=== PATIENT | male | born 1975 | race Hispanic/Latino ===

== ENCOUNTER 2020-03-09 18:51 | Inpatient (IN) | payer MEDICARE, OTHER ==
[~2020-03-09] VITALS: Ht 188 cm; Wt 148.8 kg
[~2020-03-09 18:51] MED LIST: ALBUTERAL INH; CALCITRIOL0.25 MCG PO; FUROSEMIDE40 MG PO; HYDRALAZINE HCL25 MG PO; LIPITOR20 MG PO; ORACIT PO; RENVELA800 MG PO
[2020-03-09 20:30] VITALS: BP 136/82
[2020-03-09 20:45] VITALS: BP 136/82
--- NOTE | 2020-03-09 20:45 | NUR ---
RECEIVED 44 YEAR OLD MALE FROM ER DIRECT ADMISSION VIA W/C. NKDA. VS STABLE- T98 HR 68 R 20 B/P 136/82 O2 SAT ON RA 97%. PT HAS HX DIALYSIS HEMO 3 X WEEK. DIALYSIS CATH RT CHEST INTACT. PT DUE TO HAVE DIALYSIS IN AM. WILL NOTIFY TATIANA PT ADMITTED. PT REPORT VOID DAILY. WRITTEN ORDERS RECEIVED FROM DR DAY. PHYSICIAN NOTIFIED. ORDER RECEIVED FOR TELE. ORDER RECEIVED FOR SL- PT REFUSED. LIMB ALERT ON LEFT ARM - NO BLOOD DRAW OR IV STICKS. PT TO GET FISTULA IN LEFT ARM ON monday. ORDER RECEIVED FOR LOVENOX DAILY BUT PT REFUSE. CBC AND CMP TO BE DONE WITH DIALYSIS TODAY. RESPIRATIONS ARE EVEN AND UNLABORED. TELE ON. DRESSING ON- PT REPORTS HAS SEROUS SANGUINOUS DRAINAGE FROM ABSCESS GENITAL LYMPHEDEMA. BILATERAL LOWER EXTREMITIES EDEMATOUS. CALL LIGHT WITHIN REACH. BED IN LOW POSITION. HOME MEDS ORDERED BY DR VARGAS. CONSULTS ENTERED.PT DENIES PAIN. PT AMBULATES TO BATHROOM WITH HIS WALKER FROM HOME. PT IS ALERT AND ORIENTED X3. ORIENTED PT TO ROOM, PMC, AND ANSWERED QUESTIONS PRN.
[2020-03-09] MEDS ORDERED: METOPROLOL TARTRATE INJ 1 MG/ML VIAL IV PRN (22:00)
[2020-03-10] VITALS (8 sets, daily range): BP systolic 137–159; BP diastolic 96–108
--- NOTE | 2020-03-10 07:20 | NUR ---
ASSESSMENT: Spiritual concern Pt requested sanding machine tender automatic visit via RN. Pt thankful for God. Pt states he has been "blessed" financially, physically and spiritually from God. Pt attributes radical weight loss to God help. Pt identifies as non-buddhist Methodist. Intervention: Provided empathic listening, hospitality and prayer. Facilitated storytelling. Provided information on how to reach sanding machine tender automatic, if needed. Outcome: Pt expressed appreciation for visit. Will follow as able. DUY SESAY [employer] Spiritual Care Department O: [phone]
[2020-03-10] MEDS ORDERED: SEVELAMER CARBONATE 800 MG TAB PO SCH (08:00)
[2020-03-10] MEDS ORDERED: VANCOMYCIN 1GM/NS 250 ML 250 ML IV SCH (09:00)
[2020-03-10] MEDS ORDERED: ENOXAPARIN SOD INJ 40 MG/0.4 ML SYR SC SCH (09:00)
[2020-03-10] MEDS: SEVELAMER CARBONATE 800 MG TAB PO SCH ×3 (10:33→17:15)
[2020-03-10] MEDS: METOPROLOL TARTRATE 50 MG TAB PO SCH ×2 (10:33→17:15)
[2020-03-10] MEDS: CITRIC ACID/SODIUM CITRATE 30 ML UDC PO SCH ×2 (10:33→17:15)
[2020-03-10] MEDS: CALCITRIOL 0.25 MCG CAP PO SCH (12:16)
--- NOTE | 2020-03-10 13:06 | NUR ---
WOUND CARE CONSULT FOR 44 YO MALE HX OF GENITAL LYMPHEDEMA VIKTOR 18 ON CONSERVATIVE PUP STATUS AND INTERVENTIONS AND VISCO MATTRESS SKIN ASSESSMENT COMPLETE PATIENT PRESENTS WITH ENLARGED SCROTAL AREA WITH 2 PARTIAL THICKNESS WOUNDS TO LATERAL SIDES 0.5CM X0.5CM X 0.1CM RECOMMENDATIONS: NURSING TO CONTINUE TO MAINTAIN CONSERVATIVE PUP STATUS AND INTERVENTIONS AND VISCO MATTRESS NURSING TO CONTINUE TO ASSIST PATIENT OUT OF BED FOR MEALS AND MUCH TOLERATED NURSING TO CONTINUE TO ASSIST PATIENT NEEDED WITH MEALS AND NUTRITIONAL SUPPLEMENTS TO ENSURE PROPER REQUIREMENTS FOR HEALING NURSING TO CONTINUE TO OFFLOAD FEET AND HEELS NEEDED WITH PILLOW SUSPENSION WHEN IN BED NURSING TO CLEAN SCROTAL PARTIAL THICKNESS WOUNDS WITH NORMAL SALINE DAILY AND COVER TO PROTECT FROM SHEERING AND SKIN TO SKIN FRICTION Addendum: 03/10/20 at 1323 by Rolo Davalos RN Amended: Links added.
--- NOTE | 2020-03-10 14:43 | NUR ---
Dialysis aware of patient needing dialysis today. Called Dr. Corbin office again to notify him of consult/ orders. patient returned from imaging. doing well.
--- NOTE | 2020-03-10 15:25 | Diagnostic Imaging Report ---
CT of the abdomen and pelvis, with contrast, 03/10/2020. History: Genital lymphedema. Comparison: None available. Technique: Multidetector CT scanning of the abdomen and pelvis was performed from the level of the lung bases to the inferior pubic rami after intravenous administration of contrast. Coronal and sagittal multiplanar reformations were obtained. RADIATION DOSE: Total DLP: 1311 mGy*cm Dose modulation, iterative reconstruction, and/or weight based adjustment of the mA/kV was utilized to reduce the radiation dose to as low as reasonably achievable. Discussion: LUNG BASES: There is right basilar atelectasis with moderate right pleural effusion. ABDOMEN: Gallbladder is collapsed. The kidneys are atrophic. The liver, biliary tree, spleen, pancreas, and adrenal glands are normal. The hepatic vein, portal vein, and splenic vein are patent. The abdominal aorta is within normal limits for size. Evaluation of bowel is limited without oral contrast. There is no bowel dilatation. There is no evidence of adenopathy or free fluid. PELVIS: There is massive scrotal swelling with severe skin thickening and subcutaneous edema in the posterior and dependent portion. There is no visible focal fluid collection. Enlarged inguinal lymph nodes are present bilaterally, measuring up to 1.6 cm on the left and 1.8 cm on the right. The bladder, prostate, and seminal vesicles are unremarkable. There is no evidence of free fluid. BONES AND SOFT TISSUES: Degenerative changes are present throughout the lumbar spine without evidence of lytic or sclerotic lesion. IMPRESSION: Massive scrotal edema with bilateral inguinal adenopathy, likely reactive. Signed by: Timo Vazquez on 03/10/2020 3:21 PM
--- NOTE | 2020-03-10 16:29 | History and Physical ---
CHIEF COMPLAINT: Atrial fibrillation with rapid ventricular response, scrotal abscess. HISTORY OF PRESENT ILLNESS: A 44-year-old male patient came to the office for initial exam. The patient is morbidly obese. However, he lost 280 pounds in past several months after dialysis. The patient's EKG showed atrial fibrillation with a rapid ventricular response of 140. Also, the patient is scheduled to have AV fistula placement on the left arm next week Monday at [facility] by Dr. Almeida. The patient is admitted for antibiotic treatment and control of atrial fibrillation. The patient denies chest pain, shortness of breath. He has large genital lymphedema, mass, one of the lymphocele is leaking serosanguineous drainage. PAST MEDICAL HISTORY: Hypertension, since young age, end-stage renal disease and morbid obesity. PERSONAL HISTORY: No history of smoking or alcohol. SURGICAL HISTORY: Dialysis catheter placement in the right subclavian. PHYSICAL EXAMINATION: VITAL SIGNS: Blood pressure on admission 136/82, pulse of 68, temperature 98. HEAD AND ENT: Normal. NECK: No JVD. LUNGS: Diminished at both bases. CVS: Normal. ABDOMEN: Protuberant. Bowel sounds normal. The patient has large pubic lymphedema present with one area draining serosanguineous fluid on pressure. EXTREMITIES: Lower extremities trace edema present. Chronic venous stasis hyperpigmentation present. LABORATORY DATA: Pending. ASSESSMENT: Atrial fibrillation, rapid ventricular response. End-stage renal disease. Pubic lymphedema with infection and abscess. PLAN: We will give vancomycin IV with dialysis. Echocardiogram. Cardiology consultation. Dr. Browne's consultation. MD HAYLIE Jones/MODL /[id number]
[2020-03-10 17:56] LABS: BASOPHILS # (AUTO) 0.1 (0.0-0.1); BASOPHILS % 0.7 % (0.0-1.0); EOSINOPHILS # (AUTO) 0.6 (0.0-0.4); EOSINOPHILS % 6.7 % (0.0-6.0); HEMATOCRIT 31.8 % (38.2-49.6); HEMOGLOBIN 9.6 g/dL (14.0-18.0); LYMPHOCYTES # (AUTO) 1.3 (1.0-3.2); LYMPHOCYTES % 14.6 % (18.0-39.1); MEAN CORPUSCULAR HEMOGLOBIN 28.7 pg (28-32); MEAN CORPUSCULAR HGB CONC 30.2 g/dL (31-35); MEAN CORPUSCULAR VOLUME 94.9 fL (81-99); MONOCYTES # (AUTO) 0.6 (0.2-0.8); MONOCYTES % 6.6 % (4.4-11.3); NEUTROPHILS # (AUTO) 6.5 (2.1-6.9); PLATELET COUNT 172 x10e3/uL (140-360); RED BLOOD COUNT 3.35 x10e6/uL (4.3-5.7); RED CELL DISTRIBUTION WIDTH 15.3 % (11.7-14.4)
[2020-03-10 18:26] LABS: ANION GAP 16.1 mmol/L (8-16); CALCIUM 8.8 mg/dL (8.4-10.2); CREATININE, SERUM 9.59 mg/dL (0.72-1.25); POTASSIUM 4.1 mmol/L (3.5-5.1)
--- NOTE | 2020-03-10 18:54 | Consultation ---
DATE OF CONSULTATION: 03/10/2020 Cardiology Progress Note CONSULTING PHYSICIAN: Paul Herrera M.D. REASON FOR CONSULTATION: Atrial fibrillation. HISTORY OF PRESENT ILLNESS: A pleasant 44-year-old man with history of morbid obesity; end-stage renal disease, on dialysis; dyslipidemia;and hypertension, presents for gentle lymphedema with dialysis/wound. He has been undergoing evaluation for possible AV fistula this upcoming week. He has been documented reportedly to have atrial fibrillation at the [facility] [place] per the patient's report and is aware of atrial fibrillation. He has not, however, been on anticoagulation for such that he reports in the past. He denies any chest discomfort or shortness of breath or dyspnea on exertion or level of activity. However, he is somewhat sedentary as he uses a walker to ambulate given the underlying wound. He denies any orthopnea, paroxysmal nocturnal dyspnea, or other complaints. REVIEW OF SYSTEMS: Twelve-system review is negative except for as noted above. ALLERGIES: NO KNOWN DRUG ALLERGIES. PAST MEDICAL HISTORY: As per HPI. SOCIAL HISTORY: Negative x3. FAMILY HISTORY: Noncontributory. PHYSICAL EXAMINATION: VITAL SIGNS: Temperature 97.8, heart rate 79, blood pressure 143/106, respiratory rate of 18, and O2 saturation is 99%. BMI 42. GENERAL: In no acute distress, alert. NECK: No JVD. CHEST: Clear to auscultation. CARDIOVASCULAR: Irregularly irregular rate and rhythm. Normal S1, S2. No S3 or S4. ABDOMEN: Soft. Bowel sounds positive. : Genital edema with wound. EXTREMITIES: Lower extremities with edema. CARDIOVASCULAR MEDICATIONS: Reviewed: 1. Lovenox 40 mg subcu daily. 2. Atorvastatin 20 mg at bedtime. 3. Metoprolol tartrate 50 mg b.i.d., initiated today. LABORATORY DATA: Lab work ordered and still pending. COVID-19 study pending. ASSESSMENT: A 44-year-old man with atrial fibrillation, end-stage renal disease, dyslipidemia, and hypertension, presents with suspected pneumonia. RECOMMENDATIONS: 1. Obtain echocardiogram. 2. Continue rate control strategy with beta leonarda. 3. Continue statin. 4. Switch Lovenox to 1 mg/kg once daily dosing in the setting of underlying atrial fibrillation. 5. Further recommendations to follow. MD ASHLEY Sorto/JOSEL /[id number]
--- NOTE | 2020-03-10 19:20 | NUR ---
RECEIVED REPORT FROM DAY RN. pT IS ALERT AND ORIENTED X3. lUNGS ARE CLEAR. rESPIRATIONS UNLABORED. .DIALYSIS CATH INTACT. PT DENIES PAIN.CALL LIGHT WITHIN REACH . BED IN LOW POSITION. PT TO HAVE DILAYSIS THIS PM AND ECHO.
[2020-03-10] MEDS ORDERED: SODIUM CHLORIDE 0.9% 1000ML 1,000 ML ONE (20:10)
[2020-03-10] MEDS ORDERED: IOPAMIDOL 370 MG/ML 200 ML INFUS..BTL INJ ONE (20:22)
[2020-03-10] MEDS ORDERED: SODIUM CHLORIDE 0.9% 50ML 50 ML ONE (20:22)
[2020-03-10] MEDS ORDERED: NIFEDIPINE CR 30 MG TAB PO SCH (21:00)
[2020-03-10] MEDS ORDERED: ATORVASTATIN 20 MG TAB PO SCH (21:00)
[2020-03-10] MEDS ORDERED: HEPARIN SOD (PORCINE) 1000 UNIT/ML 10ML MDV IV ONE ×2 (22:30→22:45)
[2020-03-10] MEDS ORDERED: HEPARIN SOD (PORCINE) 1000 UNIT/ML 10ML MDV IV NR ×2 (22:45→23:15)
[2020-03-10] MEDS ORDERED: HEPARIN SOD (PORCINE) 1000 UNIT/ML SDV ONE (22:51)
--- NOTE | 2020-03-10 23:00 | Consultation ---
DATE OF CONSULTATION: 03/10/2020 HISTORY OF PRESENT ILLNESS: This is a 44-year-old gentleman, who had a history of morbid obesity. He has lost 250 pounds, but has an ulcer on his pannus and Dr. Mcmahon is addressing that wound. He has been admitted. Today is his dialysis day. He denies shortness of breath, fever, chills, nausea, vomiting. PAST MEDICAL HISTORY: Significant for hypertension, secondary hyperparathyroidism, anemia of chronic kidney disease. MEDICATIONS: He is currently on Renagel with meals, enoxaparin 120 mg subcu daily. He is on Bicitra 15 mL p.o. b.i.d., calcitriol 0.25 mcg p.o. daily, atorvastatin 20 mg at bedtime. He is supposed to receive vancomycin post dialysis. ALLERGIES: HE DENIES ANY DRUG ALLERGIES. SOCIAL HISTORY: He does not smoke or drink. FAMILY HISTORY: Significant for hypertension. LABORATORY DATA: Workup included CT of abdomen and pelvis shows massive scrotal edema with bilateral inguinal adenopathy. There was no visible fluid collection. Laboratory tests, no CBC or chem-7 done. His coronavirus by PCR is pending. PHYSICAL EXAMINATION: GENERAL: Awake, alert, oriented x3, lying supine, in no apparent distress. VITAL SIGNS: Blood pressure 138/96, pulse rate 89, afebrile. HEAD AND NECK: Cornea clear. Oral mucosa moist. LUNGS: Supine exam, relatively clear. HEART: S1, S2 audible. ABDOMEN: Soft, nontender. Huge pannus, which pretty much covers almost goes down to his mid thigh when he is lying down. Quite tender which is why I did not really pull it up to see. EXTREMITIES: Lower extremities, no edema. IMPRESSION AND PLAN: 1. End-stage renal disease. 2. Hypertension. 3. Anemia of chronic kidney disease. We will obtain stat chemistries. Hypertensive. I will add Procardia at bedtime. Defer antibiotics to Dr. Mcmahon. We will add Procardia 30 [address] the patient on renal diet. Obtain stat chemistries. Dialysis nurse has been notified for dialysis today. MD SHASHI Perez/JEREMIAH /[id number]
[2020-03-11] VITALS: BP 170/98
--- NOTE | 2020-03-11 | NUR ---
PT HAD DIALYSIS THIS PM. pT TOLERATE WELL. VANCOMYCIN GIVEN ORDERED AND PORTS FLUSED WITH HEPARIN ORDERED.
[2020-03-11 04:00] VITALS: BP 144/99
[2020-03-11 08:05] VITALS: BP 118/91
[2020-03-11] MEDS ORDERED: ENOXAPARIN SOD INJ 120 MG/0.8 ML SYR SC SCH (09:00)
[2020-03-11] MEDS ORDERED: ENOXAPARIN SODIUM INJ 100 MG/ML SYR SC SCH (09:00)
[2020-03-11 09:15] VITALS: BP 118/91
[2020-03-11] MEDS: SEVELAMER CARBONATE 800 MG TAB PO SCH ×2 (09:17→12:00)
[2020-03-11] MEDS: CITRIC ACID/SODIUM CITRATE 30 ML UDC PO SCH (09:17)
[2020-03-11] MEDS: CALCITRIOL 0.25 MCG CAP PO SCH (09:18)
[2020-03-11] MEDS: METOPROLOL TARTRATE 50 MG TAB PO SCH (09:18)
[2020-03-11 11:18] VITALS: BP 125/92
--- NOTE | 2020-03-11 16:08 | NUR ---
Nutrition Screen Note RD Recommendation for Physician: -Continue renal diet Plan of Care: RD following, monitoring for tolerance and adequacy Nutrition reason for involvement: Nutrition Risk Trigger MST 4 Primary Diagnose(s): genital lymphedema with abscess PMH: HTN, ESRD, morbid obesity Ht: 74 in Wt:328 lb BMI: 42.1 kg/m2 IBW:[address] Assessment: (03/11/20) Chart reviewed. Labs and meds reviewed. Pt is a 44 year old male admitted with genital lymphedema with abscess. It is recorded that pt is consuming 100% of meals. Pt stated his weight has been stable, but per MD H/P note, it is noted that pt lost 280 lbs over the past several months. Pt stated he sees a dietitian every week. Will continue to monitor. Current Diet: renal diet Malnutrition Evaluation (03/11/20) The patient does not meet criteria for a specified degree of malnutrition at this time. Will re-evaluate at follow-up as appropriate. Diet Education Needs Assessment: Pt declined the need for diet education Nutrition Care Level: low (pt is eating well) Signed: Katie Camarillo, RD, LD
[2020-03-11 16:20] VITALS: BP 128/97
--- NOTE | 2020-03-11 17:53 | NUR ---
patient discharged. patient had previously removed his own IV. prescriptions given to patient. denied any questions. patient clear on follow ups needed. patient ambulated off unit with all belongings to friends personal vehicle.
--- NOTE | 2020-03-11 19:19 | Progress Note ---
DATE: 03/11/2020 Cardiology Progress Note SUBJECTIVE: Denies any chest pain or shortness of breath. OBJECTIVE: VITAL SIGNS: Temperature 98.2, heart rate 98, blood pressure 118/91, respiratory rate 18, and O2 saturation 99%. BMI 42. GENERAL: In no acute distress. Alert. NECK: No JVD. CHEST: Clear to auscultation. CARDIOVASCULAR: Irregular rate and rhythm. Normal S1 and S2. No S3 or S4. ABDOMEN: Soft. Bowel sounds positive. EXTREMITIES: 1+ edema. : Genital lymphedema with wound. CARDIOVASCULAR MEDICATIONS: Reviewed. Atorvastatin 20 mg at bedtime, nifedipine 30 mg at bedtime, metoprolol tartrate 50 mg b.i.d., and Eliquis 5 mg q.12 hours being started today. LABORATORY DATA: Potassium 4.1, creatinine 9.5, bicarbonate 27, and sodium 138. White blood cells 9.1, hemoglobin 9.6, and platelets are 72. ASSESSMENT AND PLAN: A 44-year-old man with history of renal failure, end-stage renal disease, hypertension, dyslipidemia, and paroxysmal atrial fibrillation, new diagnosis. RECOMMEND: 1. Echocardiogram reviewed with preserved left ventricular systolic function, nonvalvular atrial fibrillation. Continue beta-leonarda therapy and Eliquis for thromboembolic risk prevention. 2. Stress test advised. The patient prefers outpatient followup to schedule. The patient undergoing evaluation for possible AV fistula soon. It was scheduled for next week, however, the patient reports he has been postponed to next month. Outpatient contact information provided to the patient for further workup. Thank you for the opportunity to participate in the care of this gentleman. MD ASHLEY Sorto/JEREMIAH /[id number]
--- NOTE | 2020-03-11 22:05 | Discharge Summary ---
HOSPITAL COURSE: A 44-year-old male patient, morbidly obese, was seen in the office, diagnosed with atrial fibrillation with rapid ventricular response. The patient also had large pubic lymphocele with infection. The patient was admitted and received IV antibiotics. Had an echocardiogram, showed low normal LV function with EF of 50% to 55%. Moderate concentric left ventricle hypertrophy. Left atrium markedly dilated. Right ventricular systolic pressure was normal. The patient had CT of the abdomen and normal. His heart rate was controlled with metoprolol. The patient will be discharged home today. DISCHARGE DIAGNOSES: 1. Atrial fibrillation with a rapid ventricular response. 2. Pubic lymphocele with infection. 3. End-stage renal disease. The patient has antibiotics Ceftin at home to continue. We will follow up in the office next week. MD HAYLIE Jones/JEREMIAH /[id number]
[2020-03-13] MEDS ORDERED: CARVEDILOL12.5 MG PO (16:35)
== END 2020-03-11 17:53 | disposition home or self-care (01) | DRG 308 ==
LOC: MED/SURG 18:51
PROVIDERS: ADMIT Internal Medicine; ATTEND Internal Medicine
PROC: 5A1D70Z Performance of Urinary Filtration, Intermittent, Less than 6 Hours Per Day (ICD-10-PCS; principal; 2020-03-10)
DX: I48.0 Paroxysmal atrial fibrillation (principal); N18.6 End stage renal disease; I12.0 Hypertensive chronic kidney disease with stage 5 chronic kidney disease or end stage renal disease; N25.81 Secondary hyperparathyroidism of renal origin; Z68.41 Body mass index [BMI] 40.0-44.9, adult; Z79.01 Long term (current) use of anticoagulants; E66.01 Morbid (severe) obesity due to excess calories; Z99.2 Dependence on renal dialysis; E78.5 Hyperlipidemia, unspecified; E65 Localized adiposity; D63.1 Anemia in chronic kidney disease; N50.89 Other specified disorders of the male genital organs; R59.0 Localized enlarged lymph nodes; Z11.59 Encounter for screening for other viral diseases; N49.2 Inflammatory disorders of scrotum
CPT/HCPCS: 36415; 74177; 80048; 85025; 86704; 86706; 87340; 87635; 93306; 99251; J1644; J1650; J3370; J7030; Q9967

== ENCOUNTER → 2020-03-16 | Day surgery (SDC) | payer MEDICARE, OTHER ==
--- NOTE | 2020-03-12 14:32 | Diagnostic Imaging Report ---
EXAMINATION: CHEST 2 VIEWS INDICATION: Pre-operative COMPARISON: None FINDINGS: LINES/TUBES:Right IJ tunneled dialysis catheter terminates in the right atrium. LUNGS:The left lung is well-inflated. Right lung is moderately inflated. Patchy right basilar opacities. PLEURA:Moderate right pleural effusion. No pneumothorax. MEDIASTINUM:The cardiomediastinal silhouette appears normal in size and shape. BONES/SOFT TISSUES:No acute osseous injury. ABDOMEN:No free air under the diaphragm. IMPRESSION: Moderate right pleural effusion. Patchy right basilar opacities, likely subsegmental atelectasis. Signed by: Alison Krause MD on 03/12/2020 2:29 PM
[~2020-03-16] MED LIST changes: +BUPIVACAINE HCL 0.5% INJ 30 ML VIAL INJ ONE; +CARVEDILOL12.5 MG PO; +CEFAZOLIN SOD 1 GM/NS 50ML 50 ML IV ONE; +ETOMIDATE 2 MG/ML 10 ML INJ IV ONE; +FENTANYL CITRATE/PF 100MCG/2 ML INJ ONE; +HEPARIN SOD (PORCINE) 1000 UNIT/ML 30ML ONE; +LIDOCAINE HCL 2% LOCAL INJ 5 ML SDV VIAL INJ ONE; +MIDAZOLAM HCL 2 MG/2 ML VIAL ONE; +ONDANSETRON HCL INJ 2MG/ML 2ML 2 MG/ML VIAL ONE; +PROTAMINE SULFATE 10 MG/ML 5 ML VIAL ONE; +SEVOFLURANE INHAL SOLN 250 ML PEN BTL ONE; +SODIUM CHLORIDE 0.9% 500ML 500 ML ONE; +THROMBIN FOR SOLN 5,000 UNIT VIAL ONE
[2020-03-16 12:34] LABS: BASOPHILS % 0.6 % (0.0-1.0); EOSINOPHILS # (AUTO) 0.6 (0.0-0.4); EOSINOPHILS % 10.2 % (0.0-6.0); HEMATOCRIT 34.3 % (38.2-49.6); HEMOGLOBIN 10.7 g/dL (14.0-18.0); LYMPHOCYTES # (AUTO) 1.4 (1.0-3.2); LYMPHOCYTES % 21.5 % (18.0-39.1); MEAN CORPUSCULAR HEMOGLOBIN 29.1 pg (28-32); MEAN CORPUSCULAR HGB CONC 31.2 g/dL (31-35); MEAN CORPUSCULAR VOLUME 93.2 fL (81-99); MONOCYTES # (AUTO) 0.5 (0.2-0.8); NEUTROPHILS # (AUTO) 3.7 (2.1-6.9); NEUTROPHILS % 59.2 % (38.7-80.0); PLATELET COUNT 162 x10e3/uL (140-360); RED BLOOD COUNT 3.68 x10e6/uL (4.3-5.7)
[2020-03-16 12:50] LABS: INR 1.12; PARTIAL THROMBOPLASTIN TIME 30.9 seconds (23.8-35.5); PROTHROMBIN TIME 15.1 seconds (11.9-14.5)
[2020-03-16 12:56] LABS: ANION GAP 17.1 mmol/L (8-16); CALCIUM 9.1 mg/dL (8.4-10.2); CREATININE, SERUM 8.4 mg/dL (0.72-1.25); POTASSIUM 4.1 mmol/L (3.5-5.1)
[2020-03-16 17:45] VITALS: BP 139/87
--- NOTE | 2020-03-16 21:41 | Operative Report ---
DATE OF PROCEDURE: 03/16/2020 SURGEON: Juanito Almeida MD PREOPERATIVE DIAGNOSES: End-stage renal failure, need for permanent dialysis access, and paroxysmal atrial fibrillation. POSTOPERATIVE DIAGNOSES: End-stage renal failure, need for permanent dialysis access, and paroxysmal atrial fibrillation. OPERATIVE PROCEDURE: Creation of left radial artery to cephalic vein AV fistula. SUPERVISOR OF RESEARCH: Troy Frazier (nursing staff). ANESTHESIA: General endotracheal. INDICATIONS: A 44-year-old male with end-stage renal failure, who requires permanent dialysis access. Noninvasive mapping pre-operatively suggested that a left upper extremity dialysis access would be his best option. Prior to surgery, I described the operation to him. He came to the holding area by himself. I told him of the risks of surgery would include , bleeding, infection, heart attack, stroke, pneumonia, prolonged ICU stay, mechanical ventilation, tracheostomy, permanent hand/limb muscle or nerve damage, hand/limb amputation, hand/limb chronic pain, a 10% to 15% chance of the fistula might not mature, failure for subsequent revision, replacement, or further surgery, etc. The patient stated that he understood, no further questions, wanted to proceed. FINDINGS: Uneventful creation left radial artery to cephalic vein AV fistula, outflow cephalic vein was of good caliber and quality. Excellent thrill and bruit at conclusion. DESCRIPTION OF PROCEDURE: The patient was taken to the operating room on 03/16/2020. The patient was placed supine upon the operating table. General endotracheal anesthesia was smoothly induced. The left upper extremity was sterilely prepped and draped in the usual fashion using alcohol prewash and Betadine scrub and solution. Time-out was performed appropriately. An incision was made midway between the cephalic vein and radial artery. Cephalic vein was dissected from its surrounding tissues. It was of good caliber and quality. The radial artery was similarly dissected from its surrounding tissues and controlled and isolated at the same level. The patient was systemically heparinized using 1 mg/kg of heparin intravenously. The cephalic vein was divided distally and spatulated in preparation for surgery. It was dilated easily and accepted a 3.5 mm dilator without difficulty. There was no evidence of any venous stenosis. The radial artery was occluded proximally and distally. Longitudinal arteriotomy was created. There was excellent arterial inflow and backbleeding. A 3.0 mm dilator passed easily proximally and distally. End-to-side anastomosis of vein to artery was performed using two running 7-0 Prolene suture. Prior to completing the anastomosis, a 2.0 mm dilator passed easily proximally and distally into the radial artery and a 3.5 mm dilator passed easily into the outflow vein. The anastomosis was completed. Occluding instruments were removed. A half dose of protamine was administered. There was excellent hemostasis. There was an excellent palpable thrill in the outflow vein and a strong Doppler signal. There was excellent hemostasis. Local anesthesia was infiltrated. The wound was closed in layers using absorbable suture. Sterile dressings were applied. The sponge, instrument, needle counts were correct both prior to and after wound closure. Independent search of the operative field by both operating surgeons and nurse revealed no retained instruments or sponges. The patient tolerated the procedure well, was taken to recovery area in stable condition. Juanito Almeida MD GVL/MODL /[id number] cc: Juanito Almeida MD
== END | disposition home or self-care (01) ==
LOC: OR 11:35
PROVIDERS: ATTEND Surgery
DX: I12.0 Hypertensive chronic kidney disease with stage 5 chronic kidney disease or end stage renal disease (principal); N18.6 End stage renal disease; I48.0 Paroxysmal atrial fibrillation; Z99.2 Dependence on renal dialysis; Z01.810 Encounter for preprocedural cardiovascular examination; Z01.812 Encounter for preprocedural laboratory examination; Z01.818 Encounter for other preprocedural examination; Z11.59 Encounter for screening for other viral diseases
CPT/HCPCS: 36415; 36818; 71046; 80048; 85025; 85610; 85730; 87635; J0690; J1644; J2001; J2250; J2405; J2720; J3010; J7040